=== PATIENT | female | born 1995 | race Caucasian/White ===

== ENCOUNTER 2019-01-06 23:58 | Emergency (ER) | payer MEDICAID ==
[2019-01-07] MEDS: Alum Hydroxide/Mag Hydroxide 15 ML, Lidocaine 2% 15 ML PO ONE ×2 (00:58)
--- NOTE | 2019-01-07 01:25 | EDM.PDOC ---
ED HPI GENERAL MEDICAL PROBLEM - General Chief Complaint: Abdominal Pain Stated Complaint: SHARP PAIN LEFT SIDE Time Seen by Provider: 01/07/19 00:33 Source of Information: Reports: Patient History Limitations: Reports: No Limitations - History of Present Illness INITIAL COMMENTS - FREE TEXT/NARRATIVE: patient presents with concern for 3 days right upper quadrant pain which is worse after eating, severe enough that she doesn't really want to eat anything. Hurts even to drink water. Has noticed that she has been burping a little bit more than usual lately. It is on the right side underneath her ribs, also hurts when she coughs, and sometimes keeps her from sleeping. She had just gotten off work tonight at the [employer] and then came here to be evaluated. She denies any regular use of NSAIDs, but does like to eat spicy jalapenos in copious amounts. She drinks alcohol very rarely, maybe once a month but smokes marijuana and cigarettes on a regular basis. Prior to 3 days ago she did not have any problems. She is otherwise healthy. She reports no fever, no chills, but occasionally does feel sweaty. On Friday she was ill with diarrhea but that has since resolved and she has no other changes in her bowel movements and no blood. She does not have any nausea or vomiting. She does not have any change in urinary symptoms such as dysuria, increased frequency, or pain in her back or flank. She does have a chronic cough which she attributes to her smoking , though she has not been officially diagnosed with asthma. her last menstrual period was one week ago. She is not currently on contraception having had her nexplanon removed approximately 3 months ago. She is sexually active with one partner Right upper abdomen/back Pain Score (Numeric/FACES): 6 - Related Data Allergies Allergy/AdvReac Type Severity Reaction Status Date / Time No Known Allergies Allergy Verified 01/07/19 00:39 Home Meds: Home Meds Omeprazole Magnesium [Prilosec Otc] 20 mg PO QPM #14 tablet. 01/07/19 [Rx] Past Medical History HEENT History: Reports: Impaired Vision - Past Surgical History HEENT Surgical History: Reports: Oral Surgery, Tonsillectomy Social & Family History - Family History Family Medical History: Noncontributory - Tobacco Use Smoking Status *Q: Current Every Day Smoker Years of Tobacco use: 5 Packs/Tins Daily: 0.5 - Caffeine Use Caffeine Use: Reports: Energy Drinks, Soda, Tea - Alcohol Use Alcohol Use History: Yes Date/Time of Last Drink Comment: rare social drink - Recreational Drug Use Recreational Drug Use: Yes Drug Use in Last 12 Months: Yes Recreational Drug Type: Reports: Marijuana/Hashish Recreational Drug Use Frequency: Daily - Sexual History Sexual History: Reports: Sexually Active - Living Situation & Occupation Living situation: Reports: with Significant Other Occupation: Employed ED ROS GENERAL - Review of Systems Review Of Systems: ROS reveals no pertinent complaints other than HPI. ED EXAM, GENERAL - Physical Exam Exam: See Below Free Text/Narrative:: Gen.: Alert, very pleasant no acute distress. She is sitting up in bed talking and laughing with her friend. Pupils are equal and reactive, head is atraumatic , neck is supple, throat is without erythema and mucous members are moist. Lungs are clear throughout with no wheezes or crackles even with prolonged expiration. Heart is regular rate and rhythm. Peripheral pulses +2 in both the upper and lower extremities and she has no lower extremity edema. Her gait is normal. Muscular strength is equal side to side. Skin has no lesions or rashes. Abdominal exam shows her to have very minimal epigastric tenderness with no rebound or guarding. She has a negative Charles's and McBurney's point and is otherwise completely nontender with no rebound or guarding in her abdomen. Bowel sounds are normal Course - Vital Signs Text/Narrative:: initial impressionacute cholelithiasis versus peptic ulcer disease. does not present with appearance of kidney stones. Less likely pneumonia causing right- sided pleural chest pain, however given her ongoing cough will get a chest x- ray. Abdominal labs ordered. Patient's abdomen is otherwise benign. Last Recorded V/S: Last Vital Signs Temp 36.8 C 01/07/19 00:05 Pulse 88 01/07/19 00:05 Resp 16 01/07/19 00:05 BP 122/61 01/07/19 00:05 Pulse Ox 100 01/07/19 00:05 - Orders/Labs/Meds Orders: Active Orders 24 hr Category Date Time Status CXR [Chest 2V] [CR] Stat Exams 01/07/19 00:46 Ordered Chest 1V Frontal [CR] Stat Exams 01/07/19 00:47 Taken Labs: Laboratory Tests 01/07/19 01/07/19 01/07/19 Range/Units 00:30 00:30 00:30 WBC 7.5 (4.5-12.0) X10-3/uL RBC 4.29 (3.23-5.20) x10(6)uL Hgb 13.7 (11.5-15.5) g/dL Hct 40.7 (30.0-51.3) % MCV 94.7 (80-96) fL MCH 31.8 (27.7-33.6) pg MCHC 33.6 (32.2-35.4) g/dL RDW 11.6 (11.5-15.5) % Plt Count 183 (125-369) X10(3)uL MPV 10.3 (7.4-10.4) fL Neut % (Auto) 59.8 (46-82) % Lymph % (Auto) 32.7 (13-37) % [place] % (Auto) 5.2 (4-12) % Eos % (Auto) 2 (1.0-5.0) % Baso % (Auto) 0 (0-2) % Neut # (Auto) 4.5 (1.6-8.3) # Lymph # (Auto) 2.5 (0.6-5.0) # [place] # (Auto) 0.4 (0.0-1.3) # Eos # (Auto) 0.1 (0.0-0.8) # Baso # (Auto) 0.0 (0.0-0.2) # Sodium 139 (135-145) mmol/L Potassium 3.8 (3.5-5.3) mmol/L Chloride 103 (100-110) mmol/L Carbon Dioxide 28 (21-32) mmol/L BUN 15 (7-18) mg/dL Creatinine 1.0 (0.55-1.02) mg/dL Est Cr Clr Drug Dosing 80.08 mL/min Estimated GFR (MDRD) > 60 (>60) BUN/Creatinine Ratio 15.0 (9-20) Glucose 86 (80-116) mg/dL Calcium 9.1 (8.6-10.2) mg/dL Total Bilirubin 1.3 (0.1-1.3) mg/dL AST 15 (5-25) IU/L ALT 18 (12-36) U/L Alkaline Phosphatase 65 (56-112) IU/L C-Reactive Protein < 0.2 L (0.5-0.9) mg/dL Total Protein 7.2 (6.0-8.0) g/dL Albumin 4.2 (3.5-5.2) g/dL Globulin 3.0 g/dL Albumin/Globulin Ratio 1.4 Amylase 58 (25-115) U/L Urine Color (YELLOW) Urine Appearance (CLEAR) Urine pH (5.0-6.5) Ur Specific [place] (1.010-1.025) Urine Protein (NEGATIVE) mg/dL Urine Glucose (UA) (NORMAL) mg/dL Urine Ketones (NEGATIVE) mg/dL Urine Occult Blood (NEGATIVE) Urine Nitrite (NEGATIVE) Urine Bilirubin (NEGATIVE) Urine Urobilinogen (NEGATIVE) mg/dL Ur Leukocyte Esterase (NEGATIVE) Urine RBC (0-5) Urine WBC (0-5) Ur Squamous Epith Cells (NS,R,O) Urine Bacteria (NS) Urine Mucus (NS) Urinalysis Comment Urine HCG, Qual (NEGATIVE) 01/07/19 01/07/19 Range/Units 00:54 00:54 WBC (4.5-12.0) X10-3/uL RBC (3.23-5.20) x10(6)uL Hgb (11.5-15.5) g/dL Hct (30.0-51.3) % MCV (80-96) fL MCH (27.7-33.6) pg MCHC (32.2-35.4) g/dL RDW (11.5-15.5) % Plt Count (125-369) X10(3)uL MPV (7.4-10.4) fL Neut % (Auto) (46-82) % Lymph % (Auto) (13-37) % [place] % (Auto) (4-12) % Eos % (Auto) (1.0-5.0) % Baso % (Auto) (0-2) % Neut # (Auto) (1.6-8.3) # Lymph # (Auto) (0.6-5.0) # [place] # (Auto) (0.0-1.3) # Eos # (Auto) (0.0-0.8) # Baso # (Auto) (0.0-0.2) # Sodium (135-145) mmol/L Potassium (3.5-5.3) mmol/L Chloride (100-110) mmol/L Carbon Dioxide (21-32) mmol/L BUN (7-18) mg/dL Creatinine (0.55-1.02) mg/dL Est Cr Clr Drug Dosing mL/min Estimated GFR (MDRD) (>60) BUN/Creatinine Ratio (9-20) Glucose (80-116) mg/dL Calcium (8.6-10.2) mg/dL Total Bilirubin (0.1-1.3) mg/dL AST (5-25) IU/L ALT (12-36) U/L Alkaline Phosphatase (56-112) IU/L C-Reactive Protein (0.5-0.9) mg/dL Total Protein (6.0-8.0) g/dL Albumin (3.5-5.2) g/dL Globulin g/dL Albumin/Globulin Ratio Amylase (25-115) U/L Urine Color Yellow (YELLOW) Urine Appearance Slightly cloudy (CLEAR) Urine pH 6.5 (5.0-6.5) Ur Specific [place] 1.030 H (1.010-1.025) Urine Protein Negative (NEGATIVE) mg/dL Urine Glucose (UA) Normal (NORMAL) mg/dL Urine Ketones 40 (NEGATIVE) mg/dL Urine Occult Blood Negative (NEGATIVE) Urine Nitrite Negative (NEGATIVE) Urine Bilirubin Negative (NEGATIVE) Urine Urobilinogen Normal (NEGATIVE) mg/dL Ur Leukocyte Esterase Negative (NEGATIVE) Urine RBC 0-5 (0-5) Urine WBC 0-5 (0-5) Ur Squamous Epith Cells Many H (NS,R,O) Urine Bacteria Moderate H (NS) Urine Mucus Moderate H (NS) Urinalysis Comment Urine HCG, Qual Negative (NEGATIVE) Meds: Medications Discontinued Medications Generic Name Dose Route Start Last Admin Trade Name Freq PRN Reason Stop Dose Admin Al Hydroxide/Mg Hydroxide 15 0 ml 01/07/19 00:52 01/07/19 00:58 ml/ Lidocaine HCl 15 ml PO 01/07/19 00:53 30 ml ONETIME ONE Administration - Re-Assessments/Exams Free Text/Narrative Re-Assessment/Exam: 01/07/19 01:38 labs returned within normal limits. normal CMP, CBC, CRP, urinalysis and negative hCG. Chest x-ray does not show any infiltrate or other abnormalities. GI cocktail has been given to patient with no obvious improvement. Set up for right upper quadrant ultrasound in the morning and discussed differential of gallstones versus possible peptic ulcer disease. Information given for both conditions. Recommended follow-up with PCP if able sometimes in the next couple of days to review results and figure out next action. Prescription sent in for omeprazole which she can use for the next 2 weeks, PCP may opt to extend this prescription. discussed signs or symptoms that should prompt need for immediate return to the emergency room and all questions were answered, she is in agreement with this plan. Also strongly recommended smoking cessation Departure - Departure Time of Disposition: 01:25 Disposition: Home, Self-Care 01 Clinical Impression: Abdominal pain - Discharge Information *PRESCRIPTION DRUG MONITORING PROGRAM REVIEWED*: Not Applicable *COPY OF PRESCRIPTION DRUG MONITORING REPORT IN PATIENT MADALYN: Not Applicable Prescriptions: Omeprazole Magnesium [Prilosec Otc] 20 mg PO QPM #14 tablet. Instructions: Peptic Ulcer, Cholelithiasis, [id number] Referrals: Raine López NP [Primary Care Provider] - Forms: ED Department Discharge Additional Instructions: return at 830am tomorrow for ultrasound. DO NOT EAT anything prior to this test make followup with primary tomorrow or Friday to review US results (if available ) and discuss further testing or treatment for symptoms prescription sent to pharmacy for medication for 2 weeks to see if improves symptoms. This is a treatment for ulcers, which can develop as a result of stress, too much coffee, ibuprofen or related drugs, spicy foods, or alcohol. Try avoiding these foods for the next two weeks as well, longer if PCP instructs. Smoking is also a major contributing factor (not only to that but to many major hernandez problems) labs normal here -CBC, CMP, CRP, UA, HCG - My Orders Last 24 Hours: My Active Orders 01/07/19 00:46 CXR [Chest 2V] [CR] Stat 01/07/19 00:47 Chest 1V Frontal [CR] Stat - Assessment/Plan Last 24 Hours: My Active Orders 01/07/19 00:46 CXR [Chest 2V] [CR] Stat 01/07/19 00:47 Chest 1V Frontal [CR] Stat
[2019-01-07 01:42] VITALS: BP 114/57
--- NOTE | 2019-01-08 08:35 | CR ---
INDICATION: Right upper quadrant/right lower lung pain. CHEST: A single frontal view of the chest was obtained 01/07/19 - no comparisons. The heart, mediastinum, and bony thorax were unremarkable. An active infiltrate or effusion was not identified. No free air is noted under the hemidiaphragm leaves. IMPRESSION: No active disease. MTDD
== END 2019-01-07 01:39 | disposition home or self-care (01) ==
LOC: FB.ED 23:58
DX: R10.11 Right upper quadrant pain (principal); F17.210 Nicotine dependence, cigarettes, uncomplicated
CPT/HCPCS: 36415; 71045; 80053; 81001; 81025; 82150; 85025; 86140; 99284; A9270; 71046